=== PATIENT | female | born 1960 | race Caucasian/White ===

== ENCOUNTER → 2023-06-28 | Emergency (ER) | payer OTHER ==
[~2023-06-28] MED LIST: KETOROLAC 30 MG/ML INJ ONE; MORPHINE 4 MG/ML SYR ONE; NA CHLORIDE 0.9% 1,000 ML ONE; ONDANSETRON 4 MG/2 ML VIAL ONE
[2023-06-28 09:43] LABS: Absolute Basophils 0.1 K/uL (0-0.5); Absolute Eosinophils 0.1 K/uL (0-0.5); Absolute Lymphocytes (CBC) 1.9 K/uL (0.7-4.9); Absolute Monocytes 0.7 K/uL (0.1-1.3); Absolute Neutrophil 10.1 K/uL (1.8-8.0); Basophils % 0.8 % (0-1.3); Eosinophils % 0.4 % (0-4.4); Hematocrit 48.8 % (36.0-45.0); Hemoglobin 16.4 g/dL (12.0-15.0); Lymphocytes % 14.4 % (15.3-44.8); MCHC 33.6 g/dL (32.0-36.0); MCV 89.2 fL (80-100); MPV 8.6 fL (7.6-11.3); Monocytes % 5.5 % (3.3-12.3); Neutrophils % 78.9 % (41.7-73.7); Platelets 309 thou/uL (152-406); RBC Red Blood Cell Count 5.47 M/uL (3.86-4.86); Red Cell Distribution Width 13.9 % (12.1-15.2)
[2023-06-28 10:01] LABS: Albumin 3.9 g/dL (3.4-5.0); Albumin/Globulin Ratio 0.9 (1.1-1.8); Anion Gap 8.8 mEq/L (5.0-15.0); Bilirubin Total 0.5 mg/dL (0.2-1.0); Globulin 4.4 g/dL (2.3-3.5); Potassium 3.8 mEq/L (3.5-5.1); Protein, Total 8.3 g/dL (6.4-8.2)
--- NOTE | 2023-06-28 10:38 | RAD REPORT ---
EXAM DESCRIPTION: CTAbdomen Pelvis W Contrast - 06/28/2023 10:28 am CLINICAL HISTORY: Abdominal pain. ABD PAIN COMPARISON: Abdomen Pelvis W Contrast dated 07/28/2022; CT ABD PELVIS W CONTRAST dated 08/02/2012 TECHNIQUE: Biphasic CT imaging of the abdomen and pelvis was performed with 100 ml non-ionic IV cont rast. All CT scans are performed using dose optimization technique as appropriate and may include automated exposure control or mA/KV adjustment according to patient size. FINDINGS: Mild linear atelectasis in the left lung base. Small hiatal hernia. The liver demonstrates diffuse fatty infiltration. Spleen, pancreas, right adrenal gland and kidneys are within normal limits. 14 mm nodule is present left adrenal gland. No bowel obstruction, free air, free fluid or abscess. Numerous sigmoid colon diverticulosis. Mild in flammation seen left lower quadrant surrounding a short segment of the sigmoid colon suggesting mild acute diverticulitis. No abscess. Postsurgical changes are seen right colon. Moderate fat containing umbilical hernia. No evidence of significant lymphadenopathy. No suspicious bony findings. IMPRESSION: Mild acute diverticulitis is seen involving the sigmoid colon left lower quadrant. No ab scess. After appropriate therapy, recommend colonoscopy to directly visualize this region and rule ou t of a more aggressive underlying process. Diffuse fatty liver. 14 mm left adrenal nodule.
--- NOTE | 2023-06-28 10:39 | RAD REPORT ---
EXAM DESCRIPTION: US - Abdomen Exam Limited - 06/28/2023 10:24 am CLINICAL HISTORY: ABD PAIN COMPARISON: Abdomen Exam Limited dated 07/28/2022 FINDINGS: The gallbladder demonstrates multiple gallstones. No pericholecystic fluid or gallbladder wall thickening. The common bile duct is mildly prominent measuring 7 mm. The liver demonstrates no findings of intrahepatic biliary dilatation. IMPRESSION: Cholelithiasis. Mildly prominent common duct measuring 7 mm.
--- NOTE | 2023-06-28 10:49 | ER ---
Nurse's Notes [facility] [place] Name: Gabriela Batista Age: 63 yrs Sex: Female : 1960 Arrival Date: 06/28/2023 Time: 09:08 Bed 4 Private MD: Diagnosis: Diverticulitis of large intestine without perforation or abscess without bleeding;Calculus of gallbladder without cholecystitis Presentation: 06/27 09:18 Chief complaint: Patient states: epigastric pain radiating to back , back feels like iw it's burning all the way down, had similar episode last year , was supposed to have gallbladder removed but it never happened . This episode started last night, also has n/v. Coronavirus screen: At this time, the client does not indicate any symptoms associated with coronavirus-19. Ebola Screen: Patient negative for fever greater than or equal to 101.5 degrees Fahrenheit, and additional compatible Ebola Virus Disease symptoms Patient denies exposure to infectious person. Patient denies travel to an Ebola-affected area in the 21 days before illness onset. No symptoms or risks identified at this time. Initial Sepsis Screen: Does the patient meet any 2 criteria? No. Patient's initial sepsis screen is negative. Does the patient have a suspected source of infection? No. Patient's initial sepsis screen is negative. Risk Assessment: Do you want to hurt yourself or someone else? Patient reports no desire to harm self or others. Onset of symptoms was June 27, 2023. 09:18 Method Of Arrival: Ambulatory iw 09:18 Acuity: PATRICIA 3 iw Historical: - Allergies: 09:20 tramadol; makes me sleep; iw - PMHx: 09:20 Crohn's disease; iw - PSHx: 09:24 colon resection; iw - Immunization history:: Adult Immunizations not up to date, Client reports having NOT received the Covid vaccine. - Social history:: Smoking status: Patient reports the use of cigarette tobacco products, smokes one pack cigarettes per day. Screenin:49 [facility] ED Fall Risk Assessment (Adult) History of falling in the last 3 months, kc6 including since admission No falls in past 3 months (0 pts) Confusion or Disorientation No (0 pts) Intoxicated or Sedated No (0 pts) Impaired Gait No (0 pts) Mobility Assist Device Used No (0 pt) Altered Elimination No (0 pt) Score/Fall Risk Level 0 - 2 = Low Risk. Abuse screen: Denies threats or abuse. Denies injuries from another. Nutritional screening: No deficits noted. Tuberculosis screening: No symptoms or risk factors identified. Assessment: 09:49 General: Appears in no apparent distress. uncomfortable, well groomed, well developed, kc6 Behavior is calm, cooperative, appropriate for age. Pain: Complains of pain in back and epigastric area Noted to be grimacing, guarding, moaning, resistant to movement. Neuro: Level of Consciousness is awake, alert, obeys commands, Oriented to person, place, time, situation, Appropriate for age. Cardiovascular: Capillary refill < 3 seconds. Respiratory: Airway is patent Trachea midline Respiratory effort is even, unlabored, Respiratory pattern is regular, symmetrical. GI: Abdomen is flat, non-distended, Bowel sounds present X 4 quads. Abd is soft X 4 quads Abdomen is tender to palpation in epigastric area Reports upper abdominal pain, nausea, vomiting, Patient currently denies diarrhea. : No signs and/or symptoms were reported regarding the genitourinary system. EENT: No signs and/or symptoms were reported regarding the EENT system. Derm: No signs and/or symptoms reported regarding the dermatologic system. Skin is intact, is healthy with good turgor, Skin is pink, warm \T\ dry. Musculoskeletal: No signs and/or symptoms reported regarding the musculoskeletal system. Circulation, motion, and sensation intact. Capillary refill < 3 seconds, Range of motion: intact in all extremities. 10:49 Reassessment: Patient appears in no apparent distress at this time. No changes from kc6 previously documented assessment. Patient and/or family updated on plan of care and expected duration. Pain level reassessed. Patient is alert, oriented x 3, equal unlabored respirations, skin warm/dry/pink. Vital Signs: 09:18 BP 184 / 104; Pulse 75; Resp 16; Temp 97.2; Pulse Ox 100% on R/A; Weight 81.65 kg; iw Height 5 ft. 6 in. ; Pain 9/10; 09:49 BP 191 / 87; Pulse 67; Resp 16 S; Pulse Ox 99% on R/A; kc6 11:08 BP 159 / 84; Pulse 68; Resp 16 S; Pulse Ox 100% on R/A; kc6 09:18 Body Mass Index 29.05 (81.65 kg, 167.64 cm) iw 09:18 Pain Scale: Adult iw ED Course: 09:11 Patient arrived in ED. mr 09:11 Etienne Avitia MD is Attending Physician. ec2 09:20 Triage completed. iw 09:21 Arm band placed on. iw 09:31 Yumiko Jo, RN is Primary Nurse. kc6 09:44 Note: us delayed. rn giving pt meds.. lc6 09:49 Patient has correct armband on for positive identification. Bed in low position. Call kc6 light in reach. Side rails up X 1. Adult w/ patient. Client placed on continuous cardiac and pulse oximetry monitoring. NIBP monitoring applied. 09:49 Inserted saline lock: 20 gauge in left antecubital area, using aseptic technique. Blood kc6 collected. Patient maintains SpO2 saturation greater than 95% on room air. 10:23 Abdomen Limited US In Process Unspecified. EDMS 10:29 CT Abd/Pelvis - IV Contrast Only In Process Unspecified. EDMS 10:49 Memo Girard MD is Referral Physician. ec2 10:49 Cesar Larose MD is Referral Physician. ec2 11:13 Provided Education on: d/c instructions . iw 11:13 No provider procedures requiring assistance completed. IV discontinued, intact, iw bleeding controlled, No redness/swelling at site. Pressure dressing applied. Administered Medications: 09:48 Drug: NS 0.9% IV 1000 ml IV at 1 bolus Per protocol; 1000 mL bolus Route: IV; Rate: 1 kc6 bolus; Site: left antecubital; 11:09 Follow up: Response: No adverse reaction; IV Status: Completed infusion; IV Intake: kc6 1000ml 09:48 Drug: TORadol - Ketorolac IVP 15 mg IVP once Route: IVP; Site: left antecubital; kc6 11:09 Follow up: Response: No adverse reaction; Pain is decreased kc6 09:48 Drug: Ondansetron IVP 4 mg IVP once; over 2 minutes Route: IVP; Site: left antecubital; kc6 11:09 Follow up: Response: No adverse reaction; Nausea is decreased kc6 09:48 Drug: morphine IVP or IV 4 mg IVP once over 4 mins Route: IVP; Infused Over: 4 mins; kc6 Site: left antecubital; 11:09 Follow up: Response: No adverse reaction; Pain is decreased; RASS: Alert and Calm (0) kc6 Medication: 11:13 VIS not applicable for this client. iw Intake: 11:09 IV: 1000ml; Total: 1000ml. kc6 Outcome: 10:49 Discharge ordered by . ec2 11:13 Discharged to home ambulatory, with family, iw 11:13 Condition: good 11:13 Discharge instructions given to patient, family, Instructed on discharge instructions, follow up and referral plans. medication usage, Demonstrated understanding of instructions, follow-up care, medications, Prescriptions given X 3, 11:14 Patient left the ED. Signatures: Dispatcher [employer] Kimberley Tavarez, Kole Sharif mr Mellisa Sanchez, RN RN iw Yumiko Jo RN RN kc6 Aguila Singh 6 Etienne Avitia MD MD ec2 Corrections: (The following items were deleted from the chart) 09:24 09:20 PSHx: partial colectomy; iw 09:24 09:23 Allergies: colon resection; iw iw
--- NOTE | 2023-06-28 10:49 | EDPHYS ---
Physician Documentation [facility] Name: Gabriela Batista Age: 63 yrs Sex: Female : 1960 Arrival Date: 06/28/2023 Time: 09:08 Bed 4 Private MD: ED Physician Etienne Avitia HPI: 06/27 09:28 This 63 yrs old Female presents to ER via Ambulatory with complaints of ec2 Abdominal Pain, Back Pain, Vomiting. 09:28 Patient arrives today for evaluation of upper abdominal pain. Patient reports pain ec2 started last night around 12 hours ago. Patient reports some associated nausea and vomiting. Patient reports no alcohol use, reports history of Crohn's disease. Patient reports no changes in bowel patterns. Patient reports no urinary complaints. Denies any cough or cold symptoms. Patient reports history of gallstones as well.. Historical: - Allergies: 09:20 tramadol; makes me sleep; iw - PMHx: 09:20 Crohn's disease; iw - PSHx: 09:24 colon resection; iw - Immunization history:: Adult Immunizations not up to date, Client reports having NOT received the Covid vaccine. - Social history:: Smoking status: Patient reports the use of cigarette tobacco products, smokes one pack cigarettes per day. ROS: 09:28 Constitutional: as per hpi ec2 Exam: 09:28 Constitutional: GEN: NAD Head: atraumatic Eyes: EOMI Ears: External ears are ec2 normal. CV: regular rate LUNGS: no respiratory distress ABD: non-distended, soft, epigastric TTP, no guarding, not rigid SKIN: no evidence of rashes MSK: no evidence of trauma NEURO: moves all extremities equally Vital Signs: 09:18 BP 184 / 104; Pulse 75; Resp 16; Temp 97.2; Pulse Ox 100% on R/A; Weight 81.65 kg; iw Height 5 ft. 6 in. ; Pain 9/10; 09:49 BP 191 / 87; Pulse 67; Resp 16 S; Pulse Ox 99% on R/A; kc6 11:08 BP 159 / 84; Pulse 68; Resp 16 S; Pulse Ox 100% on R/A; kc6 09:18 Body Mass Index 29.05 (81.65 kg, 167.64 cm) iw 09:18 Pain Scale: Adult iw MDM: 09:27 Patient medically screened. ec2 09:28 Data reviewed: vital signs. ED course: Patient arrives today for evaluation of upper ec2 abdominal pain. Examination remarkable for well-appearing nontoxic dividual is otherwise in no acute distress with a reassuring abdominal examination. Will obtain lab work, ultrasound, CT imaging. Currently evaluate for process such as pancreatitis, gallbladder pathology, UTI.. 10:05 ED course: CBC shows slight leukocytosis of 12.9. Metabolic profile is reassuring. ec2 Lipase within normal ranges. Pending imaging. . 10:43 ED course: CT of the pelvis shows diverticulitis of the left sigmoid colon, fatty liver ec2 noted. Ultrasound shows minimally dilated CBD at 7 mm. Gallstones noted. Liver profile without LFT abnormality, no total bili abnormality. . 03 09:28 Order name: CBC with Diff; Complete Time: 10:05 ec2 06/27 09:28 Order name: CMP; Complete Time: 10:05 ec2 06/27 09:28 Order name: Lipase; Complete Time: 10:05 ec2 06/27 09:28 Order name: Abdomen Limited US; Complete Time: 10:40 ec2 06/27 09:28 Order name: CT Abd/Pelvis - IV Contrast Only; Complete Time: 10:40 ec2 06/27 09:28 Order name: IV Saline Lock; Complete Time: 09:48 ec2 06/27 09:28 Order name: Labs collected and sent; Complete Time: 09:48 ec2 Administered Medications: 09:48 Drug: NS 0.9% IV 1000 ml IV at 1 bolus Per protocol; 1000 mL bolus Route: IV; Rate: 1 kc6 bolus; Site: left antecubital; 11:09 Follow up: Response: No adverse reaction; IV Status: Completed infusion; IV Intake: kc6 1000ml 09:48 Drug: TORadol - Ketorolac IVP 15 mg IVP once Route: IVP; Site: left antecubital; kc6 11:09 Follow up: Response: No adverse reaction; Pain is decreased kc6 09:48 Drug: Ondansetron IVP 4 mg IVP once; over 2 minutes Route: IVP; Site: left antecubital; kc6 11:09 Follow up: Response: No adverse reaction; Nausea is decreased kc6 09:48 Drug: morphine IVP or IV 4 mg IVP once over 4 mins Route: IVP; Infused Over: 4 mins; kc6 Site: left antecubital; 11:09 Follow up: Response: No adverse reaction; Pain is decreased; RASS: Alert and Calm (0) kc6 Disposition Summary: 06/28/23 10:49 Discharge Ordered Notes: Location: Home ec2 Condition: Stable ec2 Diagnosis - Diverticulitis of large intestine without perforation or abscess without bleeding ec2 - Calculus of gallbladder without cholecystitis ec2 Followup: ec2 - With: Memo Girard MD - When: - Reason: Recheck today's complaints Followup: ec2 - With: Cesar Larose MD - When: - Reason: Recheck today's complaints Discharge Instructions: - Discharge Summary Sheet ec2 - Diverticulitis ec2 Forms: - Medication Reconciliation Form ec2 - Thank You Letter ec2 - Antibiotic Education ec2 - Prescription Opioid Use ec2 - Patient Portal Instructions ec2 - Leadership Thank You Letter ec2 Prescriptions: - acetaminophen-codeine 300-15 mg Oral tablet - take 1 tablet ORAL route 4 times per day; 15 tablet; Refills: 0, Product ec2 Selection Permitted - Augmentin 875-125 mg Oral Tablet - take 1 tablet ORAL route every 12 hours for 10 days; 20 tablet; Refills: 0, ec2 Product Selection Permitted - Zofran 4 mg Oral Tablet - take 1 tablet ORAL route every 12 hours As needed; 20 tablet; Refills: 0, ec2 Product Selection Permitted Signatures: Dispatcher [employer] Mellisa Garcia RN RN iw Yumiko Jo RN RN kc6 Etienne Avitia MD MD ec2 Corrections: (The following items were deleted from the chart) 09 09:20 PSHx: partial colectomy; [facility] 09:24 09:23 Allergies: colon resection; iw
[2023-06-28 11:23] VITALS: BP 159/84; TEMP 97.2; O2SAT 100
== END ==
LOC: ER 09:08
DX: K57.32 Diverticulitis of large intestine without perforation or abscess without bleeding (principal); K80.20 Calculus of gallbladder without cholecystitis without obstruction; F17.210 Nicotine dependence, cigarettes, uncomplicated; Z88.5 Allergy status to narcotic agent
CPT/HCPCS: 85025; 36415; 83690; 80053; 74177; 76705; Q9967; J2405; J7030